=== PATIENT | female | born 2000 | race Two or more races ===

== ENCOUNTER 2024-07-30 23:00 | Emergency (ER) | payer MEDICAID ==
[~2024-07-30] VITALS: Ht 165.1 cm; Wt 79.7 kg
[2024-07-30 23:35] LABS: Basophils # (auto) 0.1 10 ^3/uL (0-0.2); Basophils % (auto) 0.9 % (0.0-2.0); Eosinophils # (auto) 0.1 10 ^3/uL (0-0.8); Eosinophils % (auto) 1.5 % (0.0-7.0); Hemoglobin 12.3 g/dL (12.2-16.2); Lymphocytes # (auto) 2.8 10 ^3/uL (0.4-5.4); Lymphocytes % (auto) 31.4 % (10.0-50.0); Mean Corpuscular Hemoglobin 29.3 pg (28.0-32.0); Mean Corpuscular Hgb Conc. 34.1 g/dL (32.0-36.0); Monocytes # (auto) 0.7 10 ^3/uL (0-1.3); Monocytes % (auto) 7.7 % (0.0-12.0); Neutrophils # (auto) 5.2 10 ^3/uL (1.6-8.6); Neutrophils % (auto) 58.5 % (37.0-80.0); Nucleated Red Blood Cells % 0.1 %; Platelet Count (auto) 275 10^3/uL (140-450); Red Blood Cells 4.19 10^6/uL (4.0-5.20); White Blood Cell 8.9 10^3/uL (4.4-10.8)
[2024-07-30] MEDS: MORPHINE SULFATE 4 MG/ML SYR/VIAL IV ONE (23:40)
[2024-07-30 23:41] VITALS: TEMP 98.3
[2024-07-30] MEDS: ONDANSETRON HCL 4 MG/2 ML VIAL IV ONE (23:41)
[2024-07-30] MEDS: SODIUM CHLORIDE 0.9% 1,000 ML IV ONE (23:41)
[2024-07-30 23:46] LABS: Chloride 108 mmol/L (98-107); Potassium 2.9 mmol/L (3.5-5.1); Sodium 140 mmol/L (136-145)
[2024-07-30 23:47] LABS: Anion Gap 8 (5-15); Calcium 9.2 mg/dL (8.7-10.4); Carbon Dioxide 24 mmol/L (20-31)
[2024-07-30 23:52] LABS: BUN/Creatinine Ratio 11.3 (10.0-20.0); Blood Urea Nitrogen 8 mg/dL (9-23); Glucose 118 mg/dL (74-106)
[2024-07-31 00:50] LABS: Urine Bacteria None Seen /hpf (None Seen)
[2024-07-31 00:58] LABS: Urine Blood 3+ /uL (Negative); Urine Clarity Turbid (Clear); Urine Color Yellow (Yellow); Urine Mucus FEW (None Seen); Urine Protein, UAD 2+ (Negative); Urine Specific Gravity 1.041 (1.001-1.035); Urine Urobilinogen 3 mg/dL (Negative); Urine WBC 3 /hpf (0 - 5)
[2024-07-31 01:24] VITALS: BP 107/68; PULSE 74; RESP 16; O2SAT 100
[2024-07-31] MEDS: KETOROLAC TROMETH 30 MG/ML 1ML VIAL IV ONE (01:45)
[2024-07-31] MEDS: TAMSULOSIN HYDROCHLORIDE 0.4 MG CAP PO ONE (02:02)
== END 2024-07-31 03:05 | disposition home or self-care (01) ==
LOC: ER 23:00
DX: N23 Unspecified renal colic (principal); Z91.012 Allergy to eggs; Z91.011 Allergy to milk products
CPT/HCPCS: 36415; 74176; 80048; 81001; 85025; 96361; 96374; 96375; 99285; J2270; J2405; J7030